=== PATIENT | female | born 1990 | race Caucasian/White ===

== ENCOUNTER 2018-07-05 15:30 | Emergency (ER) | payer BC ==
[2018-07-05 15:37] VITALS: BP 119/56; PULSE 87; RESP 19; TEMP 98.7; O2SAT 100
--- NOTE | 2018-07-05 15:51 | ED PDOC ---
Lower Extremity Pain/Injury Time Seen by Provider: 07/05/18 15:32 Chief Complaint (Nursing): Lower Extremity Problem/Injury Chief Complaint (Provider): Lower Extremity Problem/Injury History Per: Patient History/Exam Limitations: no limitations Onset/Duration Of Symptoms: Days (3x) Additional Complaint(s): 28 year old female with no past medical history presents to the ED for evaluation of a left foot injury that occurred 2x days ago. Patient states that 2x nights ago, she was walking in heels when she fell twice, twisting the affected foot. Patient states that she was seen at an urgent care yesterday, and was told that she had a fracture and to follow up with orthopedics. Patient was placed in a surgical shoe and was given crutches. Patient was under the impression that she could see an orthopedist in the ED. Patient states that she has minimal discomfort to her left foot only when she bears weight. Patient denies having any other complaints. LMP: x3 days ago PMD: None Past Medical History Reviewed: Historical Data, Nursing Documentation, Vital Signs Vital Signs: Last Vital Signs Temp 98.7 F 07/05/18 15:35 Pulse 87 07/05/18 15:35 Resp 19 07/05/18 15:35 BP 119/56 L 07/05/18 15:35 Pulse Ox 100 07/05/18 15:35 ALON Report Viewed: Yes - Medical History PMH: No Chronic Diseases - Surgical History Surgical History: No Surg Hx - Family History Family History: States: No Known Family Hx - Allergies Allergies/Adverse Reactions: Allergies Allergy/AdvReac Type Severity Reaction Status Date / Time No Known Allergies Allergy Verified 07/05/18 15:35 Review of Systems ROS Statement: Except As Marked, All Systems Reviewed And Found Negative Musculoskeletal: Positive for: Foot Pain (left foot pain) Physical Exam - Reviewed Nursing Documentation Reviewed: Yes Vital Signs Reviewed: Yes - Physical Exam Comments: GENERAL APPEARANCE: Patient is awake, alert, oriented x 3, in no acute distress. Resting comfortably, crutches at bedside. SKIN: Warm, dry; (-) cyanosis. NECK: Supple, FROM ENT: Mucus membranes moist. Airway patent, (-) stridor. LOWER EXTREMITY: Left foot: (+) edema, (+) ecchymosis, (+) tenderness to 4th and 5th metatarsals and 4th and 5th toes. (-) skin break (-) erythema (-)warmth. Capillary refill and sensation intact. Ankle: (-) swelling, tenderness (+) Full ROM of ankle. Achilles tendon intact and nontender. Knee: (-) injury. (+) distal pulses LUNGS: clear to auscultation bilaterally, (-) wheezing, (-) rhonchi, (-) rales. Respirations even and nonlabored. CARDIAC: RRR NEUROLOGIC: (+) distal sensation. - ECG O2 Sat by Pulse Oximetry: 100 (RA) Pulse Ox Interpretation: Normal Medical Decision Making Medical Decision Makin:35 Clinical impression: 28 year old female with an acute foot injury Initial plan: * XRay foot left 3 views * Re-evaluation * Patient declining medication in ED. 1635 XR foot reviewed, (+) nondisplaced transverse fracture of the base of the 5th metatarsal as read by Kong CRAMER Consult to podiatry placed. 1645 Case discussed with podiatry resident Tal Knox who is agreeable to evaluation in ED. 1745 Podiatry at bedside. See consult note. 1815 Patient placed in Mares compression by podiatry. Advised to continue use of surgical shoe and crutches. Patient to follow up in office with Dr Kwok. NV intact. On re-evaluation, patient reports improvement of symptoms. On exam, patient remains AAOx3, in no acute distress. Vitals stable. Lab/Diagnostic results d/w the patient in great detail. Diagnosis of metatarsal fracture, acute foot pain d/w the patient. Based on history, exam and diagnostic results, plan will be for outpatient follow up with podiatry. Patient instructed to follow-up with pmd / referral provided / the clinic in 1- 2 days without fail. Advised to take medication as prescribed. Return to the emergency room at any time for any new or worsening symptoms. Patient states she fully agrees with and understands discharge instructions. States that she agrees with the plan and disposition. Verbalized and repeated discharge instructions and plan. I have given the patient opportunity to ask any additional questions. Scribe Attestation: Documented by Tamia Arriaga, acting as a scribe for Tamia Rodriguez Provider Scribe Attestation: All medical record entries made by the Scribe were at my direction and personally dictated by me. I have reviewed the chart and agree that the record accurately reflects my personal performance of the history, physical exam, medical decision making, and the department course for this patient. I have also personally directed, reviewed, and agree with the discharge instructions and disposition. Disposition - Clinical Impression Clinical Impression: Metatarsal bone fracture, Acute foot pain, Foot swelling - Patient ED Disposition Is Patient to be Admitted: No Counseled Patient/Family Regarding: Studies Performed, Diagnosis, Need For Followup, Rx Given - Disposition Referrals: Bc Kwok MD [Staff Provider] - Disposition: Routine/Home Disposition Time: 18:15 Condition: STABLE Additional Instructions: FOLLOW UP WITH DR KWOK [address] [facility] CONTINUE PRESCRIBED MEDICATION FROM URGENT CARE NEEDED FOR PAIN. REST, ICE AND ELEVATE LOWER EXTREMITY. The emergency medical care you received today was directed at your acute symptoms. If you were prescribed any medication, please fill it and take as directed. It may take several days for your symptoms to resolve. Return to the Emergency Department if your symptoms worsen, do not improve, or if you have any other problems. Please contact your doctor in 2 days for re-evaluation and follow up / or call one of the physicians/clinics you have been referred to that are listed on the Patient Visit Information form that is included in your discharge packet. Bring any paperwork you were given at discharge with you along with any medications you are taking to your follow up visit. Our treatment cannot replace ongoing medical care by a primary care provider (PCP) outside of the emergency department. Instructions: Metatarsalgia, How to Use Crutches, Foot Fracture (DC) Forms: Raiing (Belarusian) Print Language: MACEDONIAN - POA Present On Arrival: None
--- NOTE | 2018-07-05 18:50 | RAD ---
Date of service: 07/05/2018 PROCEDURE: Left Foot Radiographs. HISTORY: r/o 4th or 5th toe fracture COMPARISON: None. TECHNIQUE: 3 views obtained. FINDINGS: BONES: There is a transverse fracture related to the base of the 5th metatarsal bone. No dislocation or additional fracture identified. JOINTS: Normal. SOFT TISSUES: Normal. OTHER FINDINGS: None. IMPRESSION: Left 5th base metacarpal fracture. No dislocation or additional fracture identified.
--- NOTE | 2018-07-05 19:32 | CP.PCM.CON ---
History of Present Illness - History of Present Illness History of Present Illness: Podiatry Consult Note for Dr. Kwok 28F seen and evaluated in ED for left foot pain. Patient states that last night she fell at a green party and felt immediate pain to the outside of her left foot. She was unable to bear weight on the foot and began to notice increased swelling in the area. She visited an urgent MD facility and was told that she had a fracture. She was also told to follow up with an orthopedist. She came to the ED thinking that she could see an orthopedist here. She states that she has been non-weight bearing to the foot with the aid of crutches. She is AAO x 3 and NAD at time of visit. Denies any further pedal complaints. Denies any recent N/V/F/C/CP/SOB/D Review of Systems - Review of Systems All systems: reviewed and no additional remarkable complaints except Review of Systems: as per HPI Past Patient History - Infectious Disease Hx of Infectious Diseases: None - Past Social History Smoking Status: Never Smoked - PSYCHIATRIC Hx Substance Use: No Meds Allergies/Adverse Reactions: Allergies Allergy/AdvReac Type Severity Reaction Status Date / Time No Known Allergies Allergy Verified 07/05/18 15:35 Physical Exam - Constitutional Appears: Well, Non-toxic, No Acute Distress - Extremities Exam Additional comments: Left Lower Extremity Focused Exam Vasc: DP/PT pulses fully palpable 2/4 b/l. Skin temperature warm to warm from proximal to distal WNL. CFT < 3 seconds to all digits. Minimal edema noted to l ateral aspect of foot Neuro: Epicritic and protective sensation grossly intact Derm: No open lesions, wounds, maceration, xerosis, abnormal pigmentation or abnormal growths noted MSK: Pain on palpation of fifth metatarsal base. Pain at fifth metatarsal base with dorsiflexion of ankle and eversion of subtalar joint. No pain on palpation of any other area of foot or ankle - Neurological Exam Neurological exam: Alert, Oriented x3 - Psychiatric Exam Psychiatric exam: Normal Affect, Normal Mood Results - Vital Signs Recent Vital Signs: Last Vital Signs Temp 98.7 F 07/05/18 15:35 Pulse 87 07/05/18 15:35 Resp 19 07/05/18 15:35 BP 119/56 L 07/05/18 15:35 Pulse Ox 100 07/05/18 18:33 Assessment & Plan - Assessment and Plan (Free Text) Assessment: 28F seen for non-displaced left fifth metatarsal base fracture Plan: Patient seen and evaluated Plan discussed with Dr. Kwok Xray reviewed: Non-displaced fracture of fifth metatarsal base Patient placed in Mares compression dressing and instructed to remain NWB and practice RICE therapy Patient instructed to follow up with Dr. Kwok in his office - Date & Time Date: 07/05/18 Time: 19:36
== END 2018-07-05 18:44 | disposition home or self-care (01) ==
LOC: H.ER 15:30
DX: S92.352A Displaced fracture of fifth metatarsal bone, left foot, initial encounter for closed fracture (principal); W18.30XA Fall on same level, unspecified, initial encounter